=== PATIENT | male | born 1970 | race Caucasian/White ===

== ENCOUNTER 2019-05-15 12:59 | Emergency (ER) | payer OTHER ==
[2019-05-15 13:04] VITALS: BP 147/97; PULSE 76; RESP 16; TEMP 98.1
--- NOTE | 2019-05-15 13:30 | ED ---
General Adult HPI - General Chief complaint: Upper Respiratory Infection Stated complaint: headache, headpain Time Seen by Provider: 05/15/19 13:08 Source: patient, RN notes reviewed Mode of arrival: ambulatory Limitations: no limitations - History of Present Illness Initial comments: 48-year-old male with a past medical history of ADD presents to the emergency department for a chief complaint of congestion. Patient states that since Tuesday he has had sinus congestion. States that he coughed on Tuesday and felt the pain under his left eye. States that since that time he has had a dull aching pain under his left eye and above his left eye. States he also has dental pain. He denies fevers or chills. No significant cough or shortness of breath. Patient states she also has very poor dentition in the left upper jaw and is supposed to 7 teeth removed. Patient requests a work note. Patient has no other complaints at this time including shortness of breath, chest pain, abdominal pain, nausea or vomiting, headache, or visual changes. - Related Data Previous Rx's Medication Instructions Recorded Amoxicillin/Potassium Clav 1 tab PO Q12HR 14 Days #28 tab 05/15/19 [Augmentin 875-125 Tablet] Allergies Allergy/AdvReac Type Severity Reaction Status Date / Time No Known Allergies Allergy Verified 05/15/19 13:04 Review of Systems ROS Statement: Those systems with pertinent positive or pertinent negative responses have been documented in the HPI. ROS Other: All systems not noted in ROS Statement are negative. Past Medical History Past Medical History: No Reported History History of Any Multi-Drug Resistant Organisms: None Reported Past Surgical History: Orthopedic Surgery Additional Past Surgical History / Comment(s): lt hand Past Psychological History: ADD/ADHD Smoking Status: Current every day smoker Past Alcohol Use History: None Reported Past Drug Use History: Marijuana General Exam Limitations: no limitations General appearance: alert, in no apparent distress Head exam: Present: atraumatic, normocephalic, normal inspection Eye exam: Present: normal appearance, PERRL, EOMI. Absent: scleral icterus, conjunctival injection, periorbital swelling ENT exam: Present: normal exam, mucous membranes moist, TM's normal bilaterally, normal external ear exam, other (Minimal left maxillary pressure with palpation. No significant tenderness. No erythema or edema.). Absent: normal oropharynx (Patient has poor dentition noted in the left upper jaw. He does not have any abscesses present. No trismus. No sublingual edema.) Neck exam: Present: normal inspection, full ROM. Absent: tenderness, meningismus, lymphadenopathy Respiratory exam: Present: normal lung sounds bilaterally. Absent: respiratory distress, wheezes, rales, rhonchi, stridor Cardiovascular Exam: Present: regular rate, normal rhythm, normal heart sounds. Absent: systolic murmur, diastolic murmur, rubs, gallop, clicks Neurological exam: Present: alert Course Vital Signs 05/15/19 13:01 Temperature 98.1 F Pulse Rate 76 Respiratory 16 Rate Blood Pressure 147/97 O2 Sat by Pulse 99 Oximetry Medical Decision Making - Medical Decision Making Patient likely a sinusitis given pressure in the left maxillary and frontal area as well as history of congestion. No fevers. He also has poor dentition and dental pain which could be either secondary to the sinusitis or due to dental infection. No abscess. Patient will be started on Augmentin to treat sinusitis which will also treat any concurrent dental infection. He will follow with his dentist as well as primary care. I discussed strcit return parameters w the patient which he does agree with. Disposition Clinical Impression: Sinusitis Disposition: HOME SELF-CARE Condition: Good Instructions (If sedation given, give patient instructions): Sinusitis (ED) Additional Instructions: Please take advantage as directed. Please follow-up with primary care in 1-2 days. If you have any worsening symptoms return to the emergency department. Prescriptions: Amoxicillin/Potassium Clav [Augmentin 875-125 Tablet] 1 tab PO Q12HR 14 Days #28 tab Is patient prescribed a controlled substance at d/c from ED?: No Referrals: Delia Rodriguez MD [REFERRING] - 1-2 days Time of Disposition: 13:29
== END 2019-05-15 13:48 | disposition home or self-care (01) ==
LOC: EC 12:59
DX: J32.9 Chronic sinusitis, unspecified (principal); K08.89 Other specified disorders of teeth and supporting structures; F17.200 Nicotine dependence, unspecified, uncomplicated
CPT/HCPCS: 99283

== ENCOUNTER 2022-08-15 20:16 | Emergency (ER) | payer BC, OTHER ==
--- NOTE | 2022-08-15 20:46 | XR ---
EXAMINATION TYPE: XR ankle complete RT DATE OF EXAM: 08/15/2022 8:41 PM INDICATION: Patient age:Male; 51 years old; Reason for study: injury, lateral pain and swelling; PHH. COMPARISON: None TECHNIQUE: The right ankle is imaged in frontal, lateral and oblique projections. FINDINGS: Subtle, minimally displaced fracture at the tip of the distal fibula. The joint spaces are well-prese rved without evidence of subluxation or dislocation. Kager's fat pad is intact. Mild soft tissue swel ling around the ankle, most pronounced of the lateral malleolus. No radiopaque foreign bodies are jose enrique ntified. IMPRESSION: 1. Minimally displaced fracture at the tip of the distal fibula. 2. Subcutaneous swelling around the ankle likely secondary to underlying soft tissue injury.
--- NOTE | 2022-08-15 21:19 | ED ---
Lower Extremity Injury HPI - General Chief Complaint: Extremity Injury, Lower Stated Complaint: R ANKLE INJURY Time Seen by Provider: 08/15/22 20:25 Source: patient Mode of arrival: ambulatory Limitations: no limitations - History of Present Illness Initial Comments: Patient is a 51-year-old male presenting with chief complaint of left ankle pain. Patient was working on his car and rolled his ankle. He is having lateral swelling and tenderness. No numbness or tingling. He is able to walk and has full range of motion. No discoloration. - Related Data Previous Rx's Medication Instructions Recorded Amoxicillin/Potassium Clav 1 tab PO Q12HR 14 Days #28 tab 05/15/19 [Augmentin 875-125 Tablet] Cyclobenzaprine [Flexeril] 10 mg PO BID #9 tab 05/18/21 predniSONE [Deltasone] 40 mg PO DAILY #8 tab 05/18/21 Allergies Allergy/AdvReac Type Severity Reaction Status Date / Time oxycodone AdvReac Nausea & Verified 05/18/21 14:34 Vomiting Review of Systems ROS Statement: Those systems with pertinent positive or pertinent negative responses have been documented in the HPI. ROS Other: All systems not noted in ROS Statement are negative. Past Medical History Past Medical History: No Reported History History of Any Multi-Drug Resistant Organisms: None Reported Past Surgical History: Orthopedic Surgery Additional Past Surgical History / Comment(s): lt hand Past Psychological History: ADD/ADHD Smoking Status: Current every day smoker, Vaper Past Alcohol Use History: None Reported Past Drug Use History: Marijuana General Exam Limitations: no limitations General appearance: alert, in no apparent distress Head exam: Present: atraumatic, normocephalic, normal inspection Eye exam: Present: normal appearance, EOMI. Absent: scleral icterus, periorbital swelling Neck exam: Present: normal inspection, full ROM Right Ankle exam: Present: full ROM, tenderness, swelling Neurological exam: Present: alert, oriented X3, CN II-XII intact Psychiatric exam: Present: normal affect, normal mood Skin exam: Present: warm, dry, intact, normal color. Absent: rash Course Vital Signs 08/15/22 08/15/22 20:19 22:02 Temperature 97.9 F 98.2 F Pulse Rate 75 80 Respiratory 16 18 Rate Blood Pressure 155/74 140/72 O2 Sat by Pulse 100 99 Oximetry Medical Decision Making - Medical Decision Making Was pt. sent in by a medical professional or institution (KWADWO Roth, IRRIGATION SUPERVISOR, urgent care, hospital, or long term...) When possible be specific @ -No Did you speak to anyone other than the patient for history (EMS, parent, family, police, friend...)? What history was obtained from this source @ -No Did you review nursing and triage notes (agree or disagree)? Why? @ -I reviewed and agree with nursing and triage notes Were old charts reviewed (outside hosp., previous admission, EMS record, old EKG, old radiological studies, urgent care reports/EKG's, long term records)? Report findings @ -No old charts were reviewed Differential Diagnosis (chest pain, altered mental status, abdominal pain women, abdominal pain men, vaginal bleeding, weakness, fever, dyspnea, syncope, headache, dizziness, GI bleed, back pain, seizure, CVA, palpatations, mental health, musculoskeletal)? @ -Differential Musculoskeletal Muscular strain, contusion, ligament sprain, fracture, arthritis, septic arthritis, bursitis, cellulitis, muscle spasm, nerve compression, DVT, arterial occlusion, herpes zoster, electrolyte abnormality, tumor.... This is not meant to be in all inclusive list EKG interpreted by me (3pts min.). @ -As above X-rays interpreted by me (1pt min.). @ -X-ray shows minimally displaced fracture at the tip of the distal fibula CT interpreted by me (1pt min.). @ -None done U/S interpreted by me (1pt. min.). @ -None done What testing was considered but not performed or refused? (CT, X-rays, U/S, labs)? Why? @ -None What meds were considered but not given or refused? Why? @ -None Did you discuss the management of the patient with other professionals (professionals i.e. KWADWO Roth, IRRIGATION SUPERVISOR, lab, RT, psych nurse, social work case manager, maitre d, teacher, fare enforcement officer, porter sample case)? Give summary @ -No Was smoking cessation discussed for >3mins.? @ -No Was critical care preformed (if so, how long)? @ -No Were there social determinants of health that impacted care today? How? (Homelessness, low income, unemployed, alcoholism, drug addiction, transportation, low edu. Level, literacy, decrease access to med. care, fpc, rehab)? @ -No Was there de-escalation of care discussed even if they declined (Discuss DNR or withdrawal of care, Hospice)? DNR status @ -No What co-morbidities impacted this encounter? (DM, HTN, Smoking, COPD, CAD, Cancer, CVA, ARF, Chemo, Hep., AIDS, mental health diagnosis, sleep apnea, morbid obesity)? @ -None Was patient admitted / discharged? Hospital course, mention meds given and route, prescriptions, significant lab abnormalities, going to OR and other pertinent info. @ -Discharged. Patient is a 51-year-old male presenting with chief complaint of right ankle injury. There is lateral tenderness and swelling. X-ray shows minimally displaced fracture to the distal end of the fibula. Patient is placed in a splint and instructed to follow up with orthopedics. Educated on supportive treatment.Follow-up with PCP. Report back to ER with any new or worsening symptoms. Discussed return parameters and answered all questions. Patient conveyed verbal understanding and agreed to the plan. I discussed this case in detail with my attending Dr. Santana Undiagnosed new problem with uncertain prognosis? @ -No Drug Therapy requiring intensive monitoring for toxicity (Heparin, Nitro, Insulin, Cardizem)? @ -No Were any procedures done? @ -No Diagnosis/symptom? @ -Fibula fracture Acute, or Chronic, or Acute on Chronic? @ -Acute Uncomplicated (without systemic symptoms) or Complicated (systemic symptoms)? @ -Uncomplicated Side effects of treatment? @ -No Exacerbation, Progression, or Severe Exacerbation? @ -No Poses a threat to life or bodily function? How? (Chest pain, [place], [place], pneumonia, PE, COPD, DKA, ARF, appy, cholecystitis, CVA, Diverticulitis, Homicidal, Suicidal, threat to staff... and all critical care pts) @ -No Disposition Clinical Impression: Fibula fracture Disposition: HOME SELF-CARE Condition: Good Instructions (If sedation given, give patient instructions): Ankle Fracture (ED) Additional Instructions: Follow-up with PCP and orthopedics. Report back to ER with any new or worsening symptoms. Take Motrin and Tylenol as needed for pain control, rest, ice, elevate the foot.. Is patient prescribed a controlled substance at d/c from ED?: No Referrals: None,Stated [Primary Care Provider] - 1-2 days Josh Moyer MD [STAFF PHYSICIAN] - 1-2 days Time of Disposition: 21:19
[2022-08-15 22:05] VITALS: BP 140/72; PULSE 80; RESP 18; TEMP 98.2
== END 2022-08-15 22:02 | disposition home or self-care (01) ==
LOC: EC 20:16
DX: S82.402A Unspecified fracture of shaft of left fibula, initial encounter for closed fracture (principal); F90.9 Attention-deficit hyperactivity disorder, unspecified type; F17.290 Nicotine dependence, other tobacco product, uncomplicated; F12.90 Cannabis use, unspecified, uncomplicated; Z88.8 Allergy status to other drugs, medicaments and biological substances; X50.0XXA Overexertion from strenuous movement or load, initial encounter
CPT/HCPCS: 99283

== ENCOUNTER → 2023-09-23 | Outpatient (CLI) | payer BC ==
--- NOTE | 2023-09-25 17:37 | US ---
EXAMINATION TYPE: US abdomen complete DATE OF EXAM: 09/23/2023 COMPARISON: NONE CLINICAL INDICATION: Male, 53 years old with history of R10.84 GENERALIZED ABD PAIN; Pressure RUQ TECHNIQUE: Multiple sonographic images of the abdomen are obtained. FINDINGS: EXAM MEASUREMENTS: Liver Length: 13.6 cm Gallbladder Wall: 0.2 cm CBD: 0.3 cm Spleen: 9.7 cm Right Kidney: 12.0 x 6.2 x 6.0 cm Left Kidney: 10.8 x 5.8 x 6.0 cm CAR PUSHER NOTES: Difficult exam due to overlying bowel gas Pancreas: wnl Liver: wnl Gallbladder: wnl Evidence for sonographic Meeks's sign: No CBD: wnl Spleen: wnl Right Kidney: wnl Left Kidney: wnl Upper IVC: wnl Abd Aorta: wnl The liver is homogenous. The intrahepatic portion of the IVC and proximal abdominal aorta are within normal limits. There is no evidence of cholelithiasis. Common bile duct is unremarkable. The visu alized portions of the pancreas are homogenous. The spleen is unremarkable. Kidneys are symmetric a nd free of hydronephrosis. No renal lesions are seen. IMPRESSION: Unremarkable abdominal ultrasound.
== END | disposition home or self-care (01) ==
LOC: RADUSWWP 07:40
PROVIDERS: ATTEND Family Medicine
DX: R10.84 Generalized abdominal pain (principal)
CPT/HCPCS: 76700